=== PATIENT | male | born 1975 | race Caucasian/White ===

== ENCOUNTER → 2016-09-15 | Outpatient (CLI) | payer MEDICARE, SELFPAY ==
[~2016-09-15] VITALS: Ht 172.7 cm; Wt 63.0 kg
[~2016-09-15] MED LIST: ALBU8.5H IH; LISI-662 PO; OLAN10TA3 PO; ZOLP10 PO
[2016-09-15 09:41] VITALS: BP 131/87
== END | disposition home or self-care (01) ==
LOC: SRCNTR 09:31
PROVIDERS: ATTEND Hospitalist
DX: I10 Essential (primary) hypertension (principal); F25.9 Schizoaffective disorder, unspecified; L63.9 Alopecia areata, unspecified; B19.20 Unspecified viral hepatitis C without hepatic coma; R32 Unspecified urinary incontinence
CPT/HCPCS: G0463

== ENCOUNTER → 2016-10-13 | Outpatient (CLI) | payer MEDICARE, SELFPAY ==
[~2016-10-13] VITALS: Ht 172.7 cm; Wt 62.5 kg
[2016-10-13 12:16] VITALS: BP 133/74
== END | disposition home or self-care (01) ==
LOC: SRCNTR 12:10
PROVIDERS: ATTEND Hospitalist
DX: I10 Essential (primary) hypertension (principal); L63.9 Alopecia areata, unspecified; F25.9 Schizoaffective disorder, unspecified; B19.20 Unspecified viral hepatitis C without hepatic coma; R32 Unspecified urinary incontinence
CPT/HCPCS: G0463

== ENCOUNTER 2016-10-23 00:29 | Emergency (ER) | payer MEDICARE, SELFPAY ==
[~2016-10-23] VITALS: Ht 170.2 cm; Wt 75.0 kg
[2016-10-23 01:17] LABS: BASOPHILS # (AUTO) 0.05 K/uL (0.00-0.20); BASOPHILS % (AUTO) 0.5 % (0.0-2.0); EOSINOPHILS # (AUTO) 0.23 K/uL (0.00-0.70); EOSINOPHILS % (AUTO) 2.36 % (1.0-6.0); HEMATOCRIT 43.1 % (41-53); HEMOGLOBIN 13.9 g/dL (13.5-17.5); LYMPHOCYTES # (AUTO) 3.6 K/uL (1.0-4.8); LYMPHOCYTES % (AUTO) 36.6 % (22.0-44.0); MEAN CORPUSCULAR HEMOGLOBIN 26.5 pg (26.0-34.0); MEAN CORPUSCULAR HGB CONC 32.3 G/dL (31.0-37.0); MEAN CORPUSCULAR VOLUME 82 fL (80-100); MONOCYTES # (AUTO) 1.1 K/uL (0.1-1.0); MONOCYTES % (AUTO) 11.1 % (2.0-9.0); NEUTROPHILS # (AUTO) 4.9 K/uL (1.8-7.7); NEUTROPHILS % (AUTO) 49.5 % (40.0-70.0); PLATELET COUNT (AUTO) 318 K/uL (150-450); RED BLOOD CELL COUNT(AUTO) 5.26 MIL/uL (4.50-5.90); RED CELL DISTRIBUTION WIDTH 15.6 % (11.5-14.5); WHITE BLOOD COUNT (AUTO) 9.9 K/uL (4.5-11.0)
[2016-10-23 01:26] LABS: ANION GAP 9 mmol/L (8-16); CALCIUM, TOTAL 8.3 mg/dL (8.8-10.5); CARBON DIOXIDE 30 mmol/L (22-29); CHLORIDE 101 mmol/L (98-107); CREATININE 1.13 mg/dL (0.60-1.30); GLOMERULAR FILTR. RATE CALC > 60 mL/min (>60); POTASSIUM 3.4 mmol/L (3.5-5.1); SODIUM SERUM 140 mmol/L (136-145); UREA NITROGEN, BLOOD 14 mg/dL (7-18)
[2016-10-23 01:32] LABS: ALANINE AMINOTRANSFERASE 59 U/L (12-78); ALBUMIN 3.4 g/dL (3.4-5.0); ASPARTATE AMINOTRANSFERASE 43 U/L (15-37); BILIRUBIN,TOTAL 0.6 mg/dL (0.1-1.0); TOTAL PROTEIN, SERUM 7.5 g/dL (6.4-8.2)
[2016-10-23 03:42] VITALS: BP 152/79
== END 2016-10-23 03:43 | disposition home or self-care (01) ==
LOC: EMS 00:34
DX: F25.9 Schizoaffective disorder, unspecified (principal); I10 Essential (primary) hypertension; F17.210 Nicotine dependence, cigarettes, uncomplicated; F12.90 Cannabis use, unspecified, uncomplicated; Z88.0 Allergy status to penicillin; Z91.013 Allergy to seafood; Z91.018 Allergy to other foods
CPT/HCPCS: 36415; 80053; 85025; 99285; G0480